=== PATIENT | male | born 1960 | race Caucasian/White ===

== ENCOUNTER 2024-11-01 07:56 | Outpatient (CLI) | payer MEDICARE, OTHER ==
[2024-11-01 08:26] LABS: Estimated GFR - POC 67.0
[2024-11-01] MEDS ORDERED: Iopamidol 370 76% 100 ML VIAL ONE (09:53)
== END 2024-11-01 07:57 | disposition home or self-care (01) ==
LOC: CT 07:56
PROVIDERS: ATTEND Urology
DX: C67.2 Malignant neoplasm of lateral wall of bladder (principal); E27.8 Other specified disorders of adrenal gland; K57.30 Diverticulosis of large intestine without perforation or abscess without bleeding; N32.89 Other specified disorders of bladder; K76.89 Other specified diseases of liver
CPT/HCPCS: 36415; 74178; 82565; Q9967